=== PATIENT | male | born 1995 | race Caucasian/White ===

== ENCOUNTER 2024-06-07 16:18 | Inpatient (IN) | payer SELFPAY ==
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
[2024-06-07 17:56] VITALS: BP 129/94; PULSE 84; RESP 16; TEMP 36.9; O2SAT 98
[2024-06-07 17:58] VITALS: BMI 29.2
[2024-06-07 20:00] VITALS: BP 125/72; PULSE 84; RESP 16; TEMP 36.8; O2SAT 99
[2024-06-07] MEDS: traZODone HCL 50 MG TABLET PO (20:36)
[2024-06-07] MEDS: OLANZapine 5 MG TABLET PO (20:36)
--- NOTE | 2024-06-07 21:01 | PM.EVENT ---
Event Note Date of Service: 06/07/24 Event Note: Attempted to meet with pt for medical consult. He reports that he has no general medical concerns, just his anxiety. Denies any pmhx of any cardiac issues, pulmonary issues or endocrine issues. No home meds aside from anxiety med. He is waiting on a call from his mother and did not feel that he needed to meet with the medical team and declined consult. He is aware we can be consulted again if any medical concerns arise. Thank you for allowing me to participate in the pt's care. Signing off for now. Please contact the medical team if any questions or concerns. Time Spent With Patient Time: Total time managing care of this patient today ____ minutes.
[2024-06-07] MEDS: Nicotine Polacrilex 2 MG GUM 4 MG BUCCAL (21:11)
[2024-06-08 07:25] VITALS: BP 110/77; PULSE 71; RESP 14; TEMP 36.6; O2SAT 99
[2024-06-08 08:57] VITALS: BP 110/77; PULSE 71; RESP 14; TEMP 36.6; O2SAT 99
[2024-06-08 10:18] LABS: Estimated Average Glucose 100 mg/dL; Hemoglobin A1C 128.5678 umol/L; Hemoglobin A1c % 5.1 % (<6.0); Total Hemoglobin (HGBA1C) 3949.0426 umol/L
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
[2024-06-08 10:56] LABS: Folate 10.4 ng/mL (> or = 4.0); Vitamin B12 406 pg/mL (200-900)
[2024-06-08] MEDS: Nicotine Polacrilex 2 MG GUM 4 MG BUCCAL ×2 (17:26→20:17)
[2024-06-08 20:00] VITALS: BP 135/90; PULSE 71; RESP 16; TEMP 36.9; O2SAT 98
[2024-06-08] MEDS: traZODone HCL 50 MG TABLET PO ×2 (20:17→21:57)
[2024-06-08] MEDS: OLANZapine 10 MG TABLET PO (20:17)
[2024-06-09 01:04] LABS: Cholesterol 172 mg/dL (<200); HDL Cholesterol 35 mg/dL (>40); LDL Cholesterol Calculated 119 mg/dL (<100); Triglycerides 90 mg/dL (<150)
[2024-06-09 01:18] LABS: Free T4 (Free Thyroxine) 1.12 ng/dL (0.71-1.85); Thyroid Stimulating Hormone 1.39 uIU/mL (0.32-4.0)
[2024-06-09 07:42] VITALS: BP 134/79; PULSE 83; RESP 14; TEMP 36.8; O2SAT 97
[2024-06-09 08:00] VITALS: BP 134/79; PULSE 83; RESP 14; TEMP 36.8; O2SAT 97
[2024-06-09] MEDS: OLANZapine 5 MG TABLET PO ×2 (11:12→15:03)
[2024-06-09] MEDS: Nicotine Polacrilex 2 MG GUM 4 MG BUCCAL ×4 (11:13→19:00)
--- NOTE | 2024-06-09 15:14 | HO.PSYCHPN ---
Subjective Subjective Date of Service: 06/09/24 Reason For Visit: Schizophrenia Interim History: sleeping well. interested in his medications, very happy with the effect of zyprexa, asking to take it TID. b up wednesday, hoping to go. per staff, talkative, brighter. less euphoric eves. less pressured. mother called. slept 8 hours. Mental Status Exam Mental Status Exam Narrative: adequately dressed and groomed. arm/hand tattoos B/L. cooperative. fidgety/squirmy. increased amount of speech, nml rate, decr latency, nml loudness. thoughts more organized, fewer neologisms and no misuse of jargon, more definite expression. affect broad, hyper-intense, non-labile. mood euphoric. no SI/SIBI/AVH expressed. Diagnostics Vital Signs (24Hr): Vital Signs - 24 hr 06/08/24 20:00 06/09/24 07:42 06/09/24 08:00 Temperature 98.4 F 98.2 F 98.2 F Pulse Rate 71 83 83 Respiratory Rate 16 14 14 Blood Pressure 135/90 H 134/79 134/79 Pulse Oximetry 98 97 97 Oxygen Delivery Method Room Air Room Air Room Air BMI result Body Mass Index 29.2 Labs Labs: Laboratory Results - last 48 hr 06/08/24 09:11 Estimat Average Glucose 100 Hemoglobin A1c % 5.1 Triglycerides 90 Cholesterol 172 LDL Cholesterol, Calc 119 H HDL Cholesterol 35 L Vitamin B12 406 Folate 10.4 TSH 1.39 Free T4 1.12 Medications Medications Current Medications Acetaminophen (Acetaminophen 325 Mg Tablet) 650 mg PO Q6H PRN PRN Reason: Headache/Pain Mild Scale (1-3) Al Hydroxide/Mg Hydroxide (Magnesium Hydrox/Alum Hydrox 30 Ml Oral.Susp) 30 ml PO Q6H PRN PRN Reason: Heartburn/Nausea Hydroxyzine HCl (Hydroxyzine Hcl 25 Mg Tablet) 25 mg PO Q6H PRN PRN Reason: Anxiety Magnesium Hydroxide (Milk Of Magnesia 30 Ml Oral.Susp) 30 ml PO DAILY PRN PRN Reason: Constipation Nicotine Polacrilex (Nicotine Polacrilex 2 Mg Gum) 4 mg BUCCAL Q2H PRN PRN Reason: Nicotine Cravings Last Admin: 06/09/24 13:12 Dose: 4 mg Olanzapine (Olanzapine 5 Mg Tablet) 5 mg PO Q4H PRN PRN Reason: anxiety/agitation/psychosis Last Admin: 06/09/24 11:12 Dose: 5 mg Olanzapine (Olanzapine 10 Mg Tablet) 10 mg PO BEDTIME [facility] Last Admin: 06/08/24 20:17 Dose: 10 mg Olanzapine (Olanzapine 5 Mg Tablet) 5 mg PO BID@0900,1500 [facility] Last Admin: 06/09/24 15:03 Dose: 5 mg Trazodone HCl (Trazodone Hcl 50 Mg Tablet) 50 mg PO BEDTIME MRX1 PRN PRN Reason: Insomnia Last Admin: 06/08/24 21:57 Dose: 50 mg Allergies Allergies Allergy/AdvReac Type Severity Reaction Status Date / Time Unable to Assess Allergy Verified 06/07/24 16:35 Assessment & Plan Assessment & Plan (1) Schizophrenia: Status: Acute Code(s): F20.9 - Schizophrenia, unspecified Assessment and Plan: R/O Bipolar Disorder or Schizoaffective Disorder, Bipolar Type Plan 06/08: took zyprexa 5 last night, increase to 10 mg tonight. buspar DCed on admission. groups. psycho-education. 06/09: took zyprexa 10 last night, slept well. less pressured and more organized today. asking for zyprexa TID. agreed to increase to //10. leave one zyprexa 5 mg PRN per day available as well. 12b up wednesday. Reason for continued inpatient stay Substantial Risk for: inability to function and rapid decompensation Time Spent With Patient Time: Total time managing care of this patient today __25__ minutes.
[2024-06-09 20:00] VITALS: BP 126/75; PULSE 84; RESP 16; TEMP 36.8; O2SAT 98
[2024-06-09] MEDS: OLANZapine 10 MG TABLET PO (20:06)
[2024-06-09] MEDS: traZODone HCL 50 MG TABLET PO ×2 (20:31→23:41)
[2024-06-09] MEDS: hydrOXYzine HCL 25 MG TABLET PO (20:31)
[2024-06-10 07:20] VITALS: BP 118/70; PULSE 79; RESP 14; TEMP 36.8; O2SAT 98
--- NOTE | 2024-06-10 07:40 | P.PNPSI_ITS ---
Subjective Subjective Date of Service: 06/10/24 Reason For Visit: Schizophrenia Subjective Notes: Section 12B Interim History: overall social, attending groups and medication adherent. Sleep good. 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 Reports being a very good place from a mental health perspective. Denies depression, anxiety. Reports olanzapine is helpful for in his word psychosis. Sleep is good. Discussed 4 years sobriety and relapsing recently. looking forward to discharge Medication Compliance: Yes Side effects from medications: No Attending Groups: Yes Review of Systems Acute medical concerns: No Review of Systems Review of Systems unremarkable Mental Status Exam Mental Status Exam Narrative: pleasant. Engaged. Probably presented and dressed. Organized. Is intense at times during interaction, but no overt psychosis. Euthymic. No SI or HI. Insight and judgment appears fair Diagnostics Vital Signs (24Hr): Vital Signs - 24 hr 06/09/24 07:42 06/09/24 08:00 06/09/24 20:00 Temperature 98.2 F 98.2 F 98.3 F Pulse Rate 83 83 84 Respiratory Rate 14 14 16 Blood Pressure 134/79 134/79 126/75 Pulse Oximetry 97 97 98 Oxygen Delivery Method Room Air Room Air Room Air BMI result Body Mass Index 29.2 Labs Labs: Laboratory Results - last 48 hr 06/08/24 09:11 Estimat Average Glucose 100 Hemoglobin A1c % 5.1 Triglycerides 90 Cholesterol 172 LDL Cholesterol, Calc 119 H HDL Cholesterol 35 L Vitamin B12 406 Folate 10.4 TSH 1.39 Free T4 1.12 Medications Medications Current Medications Acetaminophen (Acetaminophen 325 Mg Tablet) 650 mg PO Q6H PRN PRN Reason: Headache/Pain Mild Scale (1-3) Al Hydroxide/Mg Hydroxide (Magnesium Hydrox/Alum Hydrox 30 Ml Oral.Susp) 30 ml PO Q6H PRN PRN Reason: Heartburn/Nausea Hydroxyzine HCl (Hydroxyzine Hcl 25 Mg Tablet) 25 mg PO Q6H PRN PRN Reason: Anxiety Last Admin: 06/09/24 20:31 Dose: 25 mg Magnesium Hydroxide (Milk Of Magnesia 30 Ml Oral.Susp) 30 ml PO DAILY PRN PRN Reason: Constipation Nicotine Polacrilex (Nicotine Polacrilex 2 Mg Gum) 4 mg BUCCAL Q2H PRN PRN Reason: Nicotine Cravings Last Admin: 06/09/24 19:00 Dose: 4 mg Olanzapine (Olanzapine 10 Mg Tablet) 10 mg PO BEDTIME [facility] Last Admin: 06/09/24 20:06 Dose: 10 mg Olanzapine (Olanzapine 5 Mg Tablet) 5 mg PO BID@0900,1500 [facility] Last Admin: 06/09/24 15:03 Dose: 5 mg Olanzapine (Olanzapine 5 Mg Tablet) 5 mg PO DAILY PRN PRN Reason: anxiety/agitation/psychosis Trazodone HCl (Trazodone Hcl 50 Mg Tablet) 50 mg PO BEDTIME MRX1 PRN PRN Reason: Insomnia Last Admin: 06/09/24 23:41 Dose: 50 mg Allergies Allergies Allergy/AdvReac Type Severity Reaction Status Date / Time Unable to Assess Allergy Verified 06/07/24 16:35 Assessment & Plan Assessment & Plan (1) Schizophrenia: Status: Acute Code(s): F20.9 - Schizophrenia, unspecified Assessment and Plan: R/O Bipolar Disorder or Schizoaffective Disorder, Bipolar Type Plan 06/08: took zyprexa 5 last night, increase to 10 mg tonight. buspar DCed on admission. groups. psycho-education. 06/09: took zyprexa 10 last night, slept well. less pressured and more organized today. asking for zyprexa TID. agreed to increase to 5/5/10. leave one zyprexa 5 mg PRN per day available as well. 12 up wednesday. 06/10/2024: No changes to current regimen. Undergoing safety evaluation in context of Section 12 B which on 06/12/2024 Reason for continued inpatient stay Substantial Risk for: rapid decompensation Time Spent With Patient Time: Total time managing care of this patient today ____ minutes.
[2024-06-10 08:00] VITALS: BP 118/70; PULSE 79; RESP 14; TEMP 36.8; O2SAT 98
[2024-06-10] MEDS: OLANZapine 5 MG TABLET PO ×2 (08:18→16:47)
[2024-06-10] MEDS: Nicotine Polacrilex 2 MG GUM 4 MG BUCCAL ×3 (12:47→19:56)
[2024-06-10] MEDS: Nicotine 21 MG PATCH.TD24 TRANSDERMA (18:38)
[2024-06-10] MEDS: OLANZapine 10 MG TABLET PO (19:56)
[2024-06-10] MEDS: hydrOXYzine HCL 25 MG TABLET PO (19:59)
[2024-06-10] MEDS: traZODone HCL 50 MG TABLET PO (19:59)
[2024-06-10 20:00] VITALS: BP 133/79; PULSE 91; RESP 16; TEMP 37.1; O2SAT 98
[2024-06-11 08:00] VITALS: BP 120/76; PULSE 82; RESP 18; TEMP 36.7; O2SAT 99
[2024-06-11] MEDS: OLANZapine 5 MG TABLET PO ×2 (08:40→15:24)
[2024-06-11] MEDS: Nicotine 21 MG PATCH.TD24 TRANSDERMA (08:41)
--- NOTE | 2024-06-11 10:16 | P.PNPSI_ITS ---
Subjective Subjective Date of Service: 06/11/24 Reason For Visit: Schizophrenia Subjective Notes: Section 12B Interim History: Overall social, pleasant, some groups. Medication adherent. Sleep ok. 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 Reassurance and support given. Denies depression, anxiety. No med concerns. Looking forward to discharge Medication Compliance: Yes Side effects from medications: No Attending Groups: Yes Review of Systems Acute medical concerns: No Review of Systems Review of Systems unremarkable Mental Status Exam Mental Status Exam Narrative: pleasant. Engaged. Probably presented and dressed. Organized. Is intense at times during interaction, but no overt psychosis. Euthymic. No SI or HI. Insight and judgment appears fair Diagnostics Vital Signs (24Hr): Vital Signs - 24 hr 06/10/24 20:00 06/11/24 08:00 06/11/24 08:00 Temperature 98.7 F 98.1 F 98.1 F Pulse Rate 91 82 82 Respiratory Rate 16 18 18 Blood Pressure 133/79 120/76 120/76 Pulse Oximetry 98 99 99 Oxygen Delivery Method Room Air Room Air Room Air BMI result Body Mass Index 29.2 Medications Medications Current Medications Acetaminophen (Acetaminophen 325 Mg Tablet) 650 mg PO Q6H PRN PRN Reason: Headache/Pain Mild Scale (1-3) Al Hydroxide/Mg Hydroxide (Magnesium Hydrox/Alum Hydrox 30 Ml Oral.Susp) 30 ml PO Q6H PRN PRN Reason: Heartburn/Nausea Hydroxyzine HCl (Hydroxyzine Hcl 25 Mg Tablet) 25 mg PO Q6H PRN PRN Reason: Anxiety Last Admin: 06/10/24 19:59 Dose: 25 mg Magnesium Hydroxide (Milk Of Magnesia 30 Ml Oral.Susp) 30 ml PO DAILY PRN PRN Reason: Constipation Nicotine (Nicotine 21 Mg Patch.Td24) 21 mg TRANSDERMA DAILY [facility] Last Admin: 06/11/24 08:41 Dose: 21 mg Nicotine Polacrilex (Nicotine Polacrilex 2 Mg Gum) 4 mg BUCCAL Q2H PRN PRN Reason: Nicotine Cravings Last Admin: 06/10/24 19:56 Dose: 4 mg Olanzapine (Olanzapine 10 Mg Tablet) 10 mg PO BEDTIME [facility] Last Admin: 06/10/24 19:56 Dose: 10 mg Olanzapine (Olanzapine 5 Mg Tablet) 5 mg PO BID@0900,1500 [facility] Last Admin: 06/11/24 08:40 Dose: 5 mg Olanzapine (Olanzapine 5 Mg Tablet) 5 mg PO DAILY PRN PRN Reason: anxiety/agitation/psychosis Trazodone HCl (Trazodone Hcl 50 Mg Tablet) 50 mg PO BEDTIME MRX1 PRN PRN Reason: Insomnia Last Admin: 06/10/24 19:59 Dose: 50 mg Allergies Allergies Allergy/AdvReac Type Severity Reaction Status Date / Time Unable to Assess Allergy Verified 06/07/24 16:35 Assessment & Plan Assessment & Plan (1) Schizophrenia: Status: Acute Code(s): F20.9 - Schizophrenia, unspecified Assessment and Plan: R/O Bipolar Disorder or Schizoaffective Disorder, Bipolar Type Plan 06/08: took zyprexa 5 last night, increase to 10 mg tonight. buspar DCed on admission. groups. psycho-education. 06/09: took zyprexa 10 last night, slept well. less pressured and more organized today. asking for zyprexa TID. agreed to increase to 5/5/10. leave one zyprexa 5 mg PRN per day available as well. 12b up wednesday. 06/11/2024: No changes to current regimen. Undergoing safety evaluation in context of Section 12 B which on 06/12/2024 Reason for continued inpatient stay Substantial Risk for: rapid decompensation Time Spent With Patient Time: Total time managing care of this patient today ____ minutes.
[2024-06-11 13:54] LABS: Amphetamine Screen Urine Not Detected (Not Detect); Barbiturates, Urine Not Detected (Not Detect); Benzodiazepines Screen Urine Not Detected (Not Detect); Buprenorphine Scr Not Detected (Not Detect); Cannabinoid Screen Urine POSITIVE (Not Detect); Cocaine Screen Urine Not Detected (Not Detect); Fentanyl, urine Not Detected (Not Detect); Methadone Screen, Urine Not Detected (Not Detect); Opiate Screen Urine Not Detected (Not Detect); Oxycodone Screen Urine Not Detected (Not Detect); Phencyclidine Screen Urine Not Detected (Not Detect)
[2024-06-11] MEDS: Nicotine Polacrilex 2 MG GUM 4 MG BUCCAL (18:30)
[2024-06-11 19:35] VITALS: BP 133/79; PULSE 100; RESP 18; TEMP 37.1; O2SAT 97
[2024-06-11] MEDS: traZODone HCL 50 MG TABLET PO ×2 (20:02→23:08)
[2024-06-11] MEDS: OLANZapine 10 MG TABLET PO (20:02)
[2024-06-11] MEDS: hydrOXYzine HCL 25 MG TABLET PO (23:08)
[2024-06-12 08:00] VITALS: BP 149/84; PULSE 80; RESP 16; TEMP 36.9; O2SAT 99
[2024-06-12] MEDS: Nicotine 21 MG PATCH.TD24 TRANSDERMA (08:43)
[2024-06-12] MEDS: OLANZapine 5 MG TABLET PO (08:44)
[2024-06-12] MEDS: Nicotine Polacrilex 2 MG GUM 4 MG BUCCAL (10:56)
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
--- OUTSIDE RECORDS SUMMARY | 2024-06-13 21:04 | XMS_ITS | Continuity of Care Document ---
Author Organization [facility] Address [address] [place] [address] Phone Care Team Providers Care Corn Shredder Name Role Phone Dat Mustafa DMD Unavailable Unavailable Procedures Procedure Date Limited Oral Evaluation-Problem Focused Intraoral-Periapical First Film 021 Extraction, Erupted Tooth Or Exposed Janet t (Elevati Advance Directives Directive Yes / No Effective Date File Name No Information Encounters Encounter Description Practice Location Reason(s) For Visit Diagnoses Date Provider Providers Copied on Encounter [facility], [address] [place] [address],[address], [place], [place], [id number], tel:[phone] [facility] Encounter for dental exam and cleaning w/o abnormal findings 1 [address]. [address] [place], [place], [id number] . tel:[phone] Family History Family Member Type Diagnosis Age At Onset No Information Payers Payer name Insurance type Covered green party ID Authoriza tion(s) No Information Social History Type Description Quantity Date Captured Comments Sex Male Smoking Status No Information Chief Complaint And Reason For Visit No Information Reason For Referral Reason For Referral No Information History Of Present Illness Encounter Date Complaint History Of Prese nt Illness No Information Functional Status Date Functional Assessmen t No Information Instructions Date Instruction Additional Infor mation No Information Assessments Type Assessment Date No Information Patient Care Teams Name Effective Dates (start - stop) Status Members No Information
--- OUTSIDE RECORDS SUMMARY | 2024-06-13 21:04 | XMS_ITS | Continuity of Care Document ---
Author Organization [facility] Address [address] [place] [address]- Care Team Providers Care Data Abstractor Name Role Phone Not on Staff, PCP Primary Care Physician Unavail able Encounter [facility] Date(s): 06/05/24 - 06/07/[address] [address]- Discharge Disposition: Transferred to short-term general hospit Attending Physician: Dat Rosa MD Admitting Physician: Dat Rosa MD Referring Physician: Not on Staff, Referring MD Encounter Type: Disch ES Allergies, Adverse Reactions, Alerts No Known Medication Allergies Vital Signs Most recent to oldest [Reference Range]: 1 2 3 Height 180 cm (06/07/24 3:32 PM) 180 cm (06/06/24 7:01 PM) 180 cm (06/06/24 6:54 AM) Weight 96.7 kg (06/07/24 3:32 PM) 96.7 kg (06/06/24 7:01 PM) 96.7 kg (06/06/24 6:54 AM) Oxygen Saturation [94-100 %] 99 % (06/07/24 3:32 PM) 97 % (06/07/24 6:00 AM) 98 % (06/06/24 7:01 PM) Pulse Rate [55-90 bpm] 92 bpm *H* (06/07/24 3:32 PM) 60 bpm (06/07/24 6:00 AM) 72 bpm (06/06/24 7:01 PM) Body Mass Index [18.5-24.99 kg/m2] 29.85 kg/m2 *H* (06/07/24 3:32 PM) 29.85 kg/m2 *H* (06/06/24 7:01 PM) 29.85 kg/m2 *H* (06/06/24 6:54 AM) Blood Pressure [90-138/55-84 mm Hg] 109/90mm Hg (06/07/24 3:32 PM) 109/71mm Hg (06/07/24 6:00 AM) 108/73mm Hg (06/06/24 7:01 PM) Respiratory Rate [16-30 br/min] 14 br/min *L* (06/07/24 3:32 PM) 18 br/min (06/07/24 6:00 AM) 20 br/min (06/06/24 7:01 PM) Temperature [96.8-100.4 DegF] 97.5 DegF (06/07/24 6:00 AM) 98.4 DegF (06/06/24 6:54 AM) 98.2 DegF (06/05/24 9:46 PM) Mode of Delivery (Oxygen) Room air (06/07/24 3:32 PM) Room air (06/07/24 6:00 AM) Room air (06/06/24 7:01 PM) Blood pressure sites Arm, left (06/07/24 3:32 PM) Arm, left (06/07/24 6:00 AM) Arm, left (06/06/24 7:01 PM) Temperature Route Oral (06/07/24 6:00 AM) Oral (06/06/24 6:54 AM) Oral (06/05/24 9:46 PM) Dry Weight 96.7 kg (06/07/24 3:32 PM) 96.7 kg (06/06/24 7:01 PM) 96.7 kg (06/06/24 6:54 AM) Weight Obtained Via Standing scale (06/05/24 9:46 PM) Dry Weight Obtained Via Standing scale (06/05/24 9:46 PM) EKG study * Event Display: ECG 12-Lead Authored Date: Please click on pdf link to open report * Event Display: ECG 12-Lead Authored Date: Ventricular Rate: 81 BPM Atrial Rate: 81 BPM P-R Interval: 170 ms QRS Duration: 94 ms Q-T Interval: 356 ms QTC Calculation(Bazett): 413 ms P [place]: 66 degrees R [place]: 71 degrees T [place]: 49 degrees Normal sinus rhythm Normal ECG No previous ECGs available Confirmed by REILLY STARK MD ([id number]) on 06/07/2024 8:10:55 PM [place]: REILLY STARK MD Patient Care team information Care Team Personnel Name: Not on Staff, PCP Position: S Physician (General Medicine) Member Role: PCP Insurance Providers Guarantor name: NA Health Plan Information #: 2 Payer: SELF PAY INSURANCE Member Number: [id number] Policy Number: NA Group Number: [id number] Health Plan Information #: 1 Payer: PRIME Member Number: [id number] Policy Number: ZACH Group Number: [id number]
== END 2024-06-12 11:22 | disposition home or self-care (01) | DRG 885 ==
PROVIDERS: Psychiatry & Neurology Psychiatry; Admitting Provider Psychiatry & Neurology Psychiatry; Visit Provider Psychiatry & Neurology Psychiatry
DX: F20.9 Schizophrenia, unspecified (principal); R45.851 Suicidal ideations; F17.210 Nicotine dependence, cigarettes, uncomplicated; Z71.6 Tobacco abuse counseling
CPT/HCPCS: 36415; 80061; 80307; 82607; 82746; 83036; 84439; 84443

== ENCOUNTER → 2024-06-07 16:18 | Outpatient (BNV) | payer SELFPAY | PROVIDERS: Admitting Provider Psychiatry & Neurology Psychiatry; Visit Provider Psychiatry & Neurology Psychiatry | DX: F20.0 Paranoid schizophrenia (principal) | CPT/HCPCS: 90792; 99231; 99232; 99239 ==